=== PATIENT | female | born 1965 | race Hispanic/Latino ===

== ENCOUNTER 2017-11-20 12:39 | Day surgery (SDC) | payer OTHER ==
[2017-11-20 13:33] VITALS: BMI 21.1
[2017-11-20 13:59] LABS: BASO # 0.01 K/mm3 (0.0-2.0); BASO % 0.1 % (0.0-3.0); EOS # 0.1 (0.0-0.7); EOS % 1.1 % (1.5-5.0); GRAN # 5.41 (1.4-6.5); GRAN % 69.1 % (50.0-68.0); HEMOGLOBIN 13.6 g/dL (12.0-16.0); LYMPH # 1.9 (1.2-3.4); LYMPH % 23.7 % (22.0-35.0); MEAN CORPUSCULAR HGB CONC 32.9 g/dl (31.0-37.0); MEAN PLATELET VOLUME 8.8 fl (7.0-11.0); MONO # 0.5 (0.1-0.6); RBC 4.54 10^6/uL (3.5-6.1); RED CELL DISTRIBUTION WIDTH 13.7 % (11.5-14.5); WHITE BLOOD COUNT 7.8 10^3/ul (4.5-11.0)
[2017-11-20] MEDS ORDERED: Midazolam 2 MG/2 ML VIAL ONE (14:12)
[2017-11-20 14:13] LABS: BLOOD UREA NITROGEN 10 mg/dL (7-21); GFR NON-AFRICAN AMERICAN > 60
[2017-11-20 14:14] LABS: INR 0.98; PARTIAL THROMBOPLASTIN TIME 31.1 Seconds (25.1-36.5); PROTHROMBIN TIME 11.2 SECONDS (9.4-12.5)
[2017-11-20] MEDS ORDERED: Lidocaine 1% Inj (20ml) ONE (15:30)
[2017-11-20] MEDS ORDERED: Oxycodone/Acetaminophen 5/325 mg Tab PO PRN (15:42)
[2017-11-20] MEDS ORDERED: Sodium Chloride 0.45% 1,000 ML IV SCH (15:45)
[2017-11-20 16:42] VITALS: RESP 18; TEMP 97.9
[2017-11-20 17:42] VITALS: PULSE 53; O2SAT 99
--- NOTE | 2017-11-20 19:20 | CT ---
PROCEDURE: CT guided right clavicle biopsy. HISTORY: 2.5 cm expansile lytic mass in the distal right clavicle. Evaluate for malignancy PHYSICIAN(S): Alvarez Soto MD. TECHNIQUE: The relative risks and indications of the procedure were explained to the patient and consent obtained. The patient was placed supine on the CT scanner and preliminary images through the clavicle obtained. Conscious sedation and monitoring were provided throughout the procedure by a nurse. There is a 2.5 cm expansile lytic mass in the distal right clavicle P. A oblique medial approach was selected and the area prepped and draped in the usual sterile fashion. 1% Xylocaine was used to anesthetize the skin and soft tissues. A 17-gauge guiding needle was advanced into the margin of the expansile mass. Its position was confirmed with CT. Using coaxial technique, multiple core biopsies were obtained. The postprocedure images show no evidence of significant hemorrhage. IMPRESSION: 1. CT-guided right clavicle biopsy as described above.
[2017-11-20 19:37] VITALS: BP 119/68
== END 2017-11-20 19:30 | disposition home or self-care (01) ==
LOC: SDS 12:39
PROVIDERS: ATTEND Radiology Vascular & Interventional Radiology
DX: C90.30 Solitary plasmacytoma not having achieved remission (principal); E07.9 Disorder of thyroid, unspecified
CPT/HCPCS: 20220; 36415; 77012; 80048; 84703; 85025; 85610; 85730; 88305; 99152; J2250; J2405; J3010; J7030

== ENCOUNTER 2017-12-09 13:11 | Day surgery (SDC) | payer OTHER ==
[2017-12-04 10:47] VITALS: BMI 21.0
[2017-12-09 13:58] LABS: BASO # 0.01 K/mm3 (0.0-2.0); BASO % 0.1 % (0.0-3.0); EOS # 0.1 (0.0-0.7); GRAN # 4.77 (1.4-6.5); GRAN % 65.5 % (50.0-68.0); HEMOGLOBIN 13.8 g/dL (12.0-16.0); LYMPH % 26.8 % (22.0-35.0); MEAN CELL VOLUME 92.7 fl (80.0-105.0); MEAN CORPUSCULAR HEMOGLOBIN 30.3 pg (25.0-35.0); MEAN CORPUSCULAR HGB CONC 32.7 g/dl (31.0-37.0); MEAN PLATELET VOLUME 8.8 fl (7.0-11.0); MONO # 0.5 (0.1-0.6); MONO % 6.6 % (1.0-6.0); RBC 4.55 10^6/uL (3.5-6.1); RED CELL DISTRIBUTION WIDTH 14.1 % (11.5-14.5); WHITE BLOOD COUNT 7.3 10^3/uL (4.5-11.0)
[2017-12-09 14:10] LABS: INR 0.98; PARTIAL THROMBOPLASTIN TIME 30.6 Seconds (25.1-36.5); PROTHROMBIN TIME 11.2 SECONDS (9.4-12.5)
[2017-12-09 14:23] LABS: BLOOD UREA NITROGEN 13 mg/dL (7-21); CALCIUM 9.3 mg/dL (8.4-10.5); GFR NON-AFRICAN AMERICAN > 60
[2017-12-09] MEDS ORDERED: Midazolam 2 MG/2 ML VIAL ONE (15:59)
[2017-12-09] MEDS ORDERED: Lidocaine 1% Inj (20ml) ONE (16:00)
[2017-12-09] MEDS ORDERED: Oxycodone/Acetaminophen 5/325 mg Tab PO PRN (16:58)
[2017-12-09] MEDS ORDERED: Sodium Chloride 0.45% 1,000 ML IV SCH (17:00)
[2017-12-09] MEDS ORDERED: Midazolam 2 MG/2 ML VIAL IVP ONE (17:11)
[2017-12-09 17:40] VITALS: RESP 18; O2SAT 98
--- NOTE | 2017-12-09 18:13 | CT ---
PROCEDURE: CT-guided pelvic bone marrow aspiration and biopsy HISTORY: Clavicular plasmacytoma. Evaluate for multiple myeloma. PHYSICIAN(S): Alvarez Soto MD. TECHNIQUE: The relative risks and indications of the procedure were explained to the patient and consent obtained. The patient was placed prone on the CT scanner and preliminary images through the pelvis obtained. Conscious sedation and monitoring were provided throughout the procedure by a nurse. The right posterior superior iliac spine was selected for biopsy.. A posterior oblique approach was selected and the area prepped and draped in the usual sterile fashion. 1% Xylocaine was used to anesthetize the skin and soft tissues. The on control needle was advanced to the right posterior superior iliac spine and its position confirmed with CT. The needle was advanced through the cortex. Bone marrow aspiration and clot were obtained. A long core biopsy was then obtained through the right ilium. The patient tolerated the procedure well. IMPRESSION: 1. CT-guided l pelvic bone marrow aspiration and biopsy as described
[2017-12-09 19:00] VITALS: BP 123/70; PULSE 63; TEMP 98
== END 2017-12-09 19:20 | disposition home or self-care (01) ==
LOC: SDS 13:11
PROVIDERS: ATTEND Radiology Vascular & Interventional Radiology
DX: C90.30 Solitary plasmacytoma not having achieved remission (principal)
CPT/HCPCS: 36415; 38221; 80048; 84703; 85025; 85610; 85730; 99152; 99153; J2250; J2405; J3010; J7030

== ENCOUNTER 2018-05-04 05:14 | Outpatient (CLI) | payer OTHER | END 2018-05-04 05:15 | disposition home or self-care (01) | LOC: PET-BROA 05:14 | DX: C90.30 Solitary plasmacytoma not having achieved remission (principal) ==